=== PATIENT | male | born 1965 | race African-American/Black ===

== ENCOUNTER 2023-12-15 08:44 | Outpatient (REF) | payer MEDICAID, SELFPAY ==
[2023-12-15 14:21] LABS: MANUAL DIFF FLAG NO
[2023-12-15 14:25] LABS: Basophils Percent Auto 0.8 % (0-2); Eosinophils Absolute Auto 0.1 X10*3/uL (0.0-0.4); Eosinophils Percent Auto 1.8 % (0-4); Hematocrit 48.5 % (42.0-52.0); Hemoglobin 15.5 g/dl (14.0-18.0); Imm Gran Abs Auto 0.03 X10*3/uL (0.00-0.03); Imm Gran Pct Auto 0.6 % (0.0-0.4); Lymphocytes Percent Auto 39.7 % (20-40); Mean Corpuscular Hemoglobin 26.7 pg (27.0-33.0); Mean Corpuscular Volume 83.5 fL (80.0-98.0); Mean Platelet Volume 10.3 fL (9.4-12.4); Monocytes Absolute Auto 0.4 X10*3/uL (0.1-1.2); Monocytes Percent Auto 7.8 % (2-11); Neutrophils Absolute Auto 2.5 x10*3/uL (2.0-8.3); Neutrophils Percent Auto 49.3 % (45-73); Platelet Count 267 X10*3/uL (160-400); Red Blood Count 5.81 X10*6/uL (4.60-5.80); Red Cell Distribution Width 13.2 % (11.0-16.0)
[2023-12-15 15:02] LABS: Alanine Aminotransferase 12 U/L (0-40); Albumin Level 4.3 g/dL (3.5-5.0); Alkaline Phosphatase 60 U/L (39-117); Anion Gap 15 (12-20); Aspartate Amino Transferase 11 U/L (5-37); Bilirubin Total 0.5 mg/dL (0.0-1.0); Blood Urea Nitrogen 16 mg/dL (9-16); Calcium 9.2 mg/dL (8.4-10.2); Carbon Dioxide 20 mmol/L (22-29); Chloride 105 mmol/L (96-108); Cholesterol 148 mg/dL (<200); Estimated Glomerular Filt Rate > 60; Glucose Random 108 mg/dL (60-115); HDL Cholesterol 43 mg/dL (>40); LDL Cholesterol Calculated 83 mg/dL (<100); Potassium 3.9 mmol/L (3.3-5.1); Sodium 136 mmol/L (135-145); Total Protein 7.4 g/dL (6.5-8.0); Triglycerides 112 mg/dL (<150)
[2023-12-15 15:10] LABS: TSH reflex Free T4 0.62 uIU/mL (0.32-4.0)
[2023-12-15 15:11] LABS: Prostate Specific Antigen 0.97 ng/mL (<0.05-4.0)
[2023-12-15 15:52] LABS: Creatinine Urine 34.64 mg/dL; Microalbumin Urine < 5.0 mg/L
[2023-12-16 10:38] LABS: HBS Num1 9.51 mIU/mL (0-7.99); HBc Num1 0.39 S/CO (0.00-0.79); HBsAGNum1 0.34 S/CO (0.00-0.99); HIV AB/AG Nonreactive (Nonreactive); HIV Num 1 0.04 S/CO (0.00-0.99); Hepatitis B Core Antibody Nonreactive (Nonreactive); Hepatitis B Surface Antigen Negative (Negative)
[2023-12-16 12:34] LABS: HBS Num2 9.05 mIU/mL (0-7.99); HBS Num3 9.14 mIU/mL (0-7.99); ~Hepatitis B Surface Antibody GRAYZONE (Nonreactive)
[2023-12-17 14:44] LABS: RPR Rapid Plasma Reagin NON-REACTIVE (NON-REACTIVE)
[2023-12-18 14:58] LABS: HCV Log PCR <1.18 NOT DETECTED Log IU/mL (NOT DETECTED); HepC Viral Load <15 NOT DETECTED IU/mL (NOT DETECTED)
== END 2023-12-15 08:45 | disposition home or self-care (01) ==
LOC: HO.CHCLDS 08:44
PROVIDERS: PCP Registered Nurse; Visit Provider Registered Nurse
DX: E11.9 Type 2 diabetes mellitus without complications (principal); Z79.4 Long term (current) use of insulin
CPT/HCPCS: 36415; 80053; 80061; 82043; 82570; 84153; 84443; 85025; 86592; 86704; 86706; 87340; 87389; 87522

== ENCOUNTER 2024-05-03 09:36 | Day surgery (SDC) | payer OTHER, SELFPAY ==
--- NOTE | 2024-05-02 10:00 | HO.ANESPROP2 ---
Documented by User: Ladan Melgar NP 05/02/24 10:00 HPI - Anesthesia Eval Consult details Narrative: 58yo M for Colonoscopy Anesthesia Pre-Procedure Meds Is the patient on any of the following meds?: SGLT2 Inhib [facility] Past Medical History Medical History (Updated 05/02/24 @ 08:30 by Rosemary Bar, JAMIL) HTN (hypertension) Diabetes Surgical History Surgical History H/O colonoscopy Hx of appendectomy Social History Social History Patient Tobacco Use Status: Never used Tobacco Use of substances other than those prescribed or required for medical reasons: No Are you DNR?: No Advance Directives: No Advance Directives Information Provided: Yes Meds Allergies Allergy/AdvReac Type Severity Reaction Status Date / Time No Known Allergies Allergy Verified 05/03/24 09:48 Home Medications ?Medication ?Instructions ?Recorded ?Confirmed ?Last Taken ?Type empagliflozin 25 mg tablet 25 mg PO DAILY 05/02/24 05/03/24 04/29/24 History (Jardiance) insulin glargine 100 unit/mL (3 10 unit subcut BEDTIME 05/02/24 05/03/24 Unknown History mL) subcutaneous pen (Lantus Solostar U-100 Insulin) metformin 1,000 mg tablet 1,000 mg PO BID 05/02/24 05/03/24 Unknown History pravastatin 40 mg tablet 40 mg PO BEDTIME cholesterol 05/02/24 05/03/24 Unknown History valsartan 160 1 tab PO DAILY blood pressure 05/02/24 05/03/24 05/03/24 08:30 History mg-hydrochlorothiazide 12.5 mg tablet Assessment and Plan Assessment Anesthesia Assessment: Chart Reviewed Documented by User: Francisco Javier Alejandre MD 05/03/24 10:02 [facility] Past Medical History Medical History (Updated 05/02/24 @ 08:30 by Rosemary Bar RN) HTN (hypertension) Diabetes Family History Family history of problems with anesthesia: No Surgical History Surgical History H/O colonoscopy Hx of appendectomy History of Problems with Anesthesia: No Social History Social History Patient Tobacco Use Status: Never used Tobacco Use of substances other than those prescribed or required for medical reasons: No Are you DNR?: No Advance Directives: No Advance Directives Information Provided: Yes Meds Allergies Allergy/AdvReac Type Severity Reaction Status Date / Time No Known Allergies Allergy Verified 05/03/24 09:48 Home Medications ?Medication ?Instructions ?Recorded ?Confirmed ?Last Taken ?Type empagliflozin 25 mg tablet 25 mg PO DAILY 05/02/24 05/03/24 04/29/24 History (Jardiance) insulin glargine 100 unit/mL (3 10 unit subcut BEDTIME 05/02/24 05/03/24 Unknown History mL) subcutaneous pen (Lantus Solostar U-100 Insulin) metformin 1,000 mg tablet 1,000 mg PO BID 05/02/24 05/03/24 Unknown History pravastatin 40 mg tablet 40 mg PO BEDTIME cholesterol 05/02/24 05/03/24 Unknown History valsartan 160 1 tab PO DAILY blood pressure 05/02/24 05/03/24 05/03/24 08:30 History mg-hydrochlorothiazide 12.5 mg tablet Exam Airway Mallampati Class: II TM Dist: >3cm Neck ROM: Full Assessment and Plan Assessment Anesthesia Assessment: Anesthesia Plan Discussed Final Anesthetic Review Family History of Problems with Anesthesia: No History of Problems with Anesthesia: No NPO: Yes ASA Class: III Final Preanesthetic Review: No Changes in Pt Med Stat, Meds/Allgs Chart Reviewed, Consent Obtained/Reviewed and Anes Risks/Benef Reviewed Patient Risk: Intermediate Procedure Risk: Low Anesthetic Plan Anesthetic Plan: TIVA Disposition: Standard PACU
[2024-05-03 09:49] VITALS: BMI 27.8
[2024-05-03 10:00] VITALS: BP 148/80; PULSE 83; RESP 16; TEMP 36.2; O2SAT 99
--- NOTE | 2024-05-03 10:00 | MHC.SHP ---
Pre-Procedural Eval Section A - 24 Hr Update-Section A only Date of Service: 05/03/24 The patient is an INPATIENT: No The patient has been examined within 24 hours of the surgical procedure. The History & Physical has been completed within 30 days and I have reviewed it.: Yes Section B - Complete if H&P > 30 days Chief Complaint: screening Allergies: Allergies Allergy/AdvReac Type Severity Reaction Status Date / Time No Known Allergies Allergy Verified 05/03/24 09:48 Plan I have reviewed the history and physical and performed a pertinent physical examination on my patient. No changes have occurred unless specified. Time Spent With Patient Time: Total time managing care of this patient today ____ minutes.
[2024-05-03 10:01] LABS: Glucose, Whole Blood 143 mg/dL (60-115)
[2024-05-03] MEDS: Lactated Ringers 1,000 ML 100 ML IVCONT (10:08)
[2024-05-03 10:42] VITALS: BP 104/70; PULSE 66; RESP 16; TEMP 36.6; O2SAT 96
[2024-05-03 10:57] VITALS: BP 113/71; PULSE 69; RESP 16; TEMP 36.6; O2SAT 99
--- NOTE | 2024-05-03 11:38 | OP_ITS ---
DATE OF SERVICE: 05/03/2024 SURGEON: Jair Mcintyre MD INDICATIONS: Colon cancer screening. PREOPERATIVE DIAGNOSIS: POSTOPERATIVE DIAGNOSIS: PROCEDURE PERFORMED: Colonoscopy to the cecum. ESTIMATED BLOOD LOSS: COMPLICATIONS: ANESTHESIA: Monitored anesthesia care. ASSISTANTS: SPECIMENS: DESCRIPTION OF PROCEDURE: History and physical performed. The risks and benefits of the procedure were explained to the patient and informed consent was obtained. The patient was placed in the left lateral decubitus position. A digital rectal exam was performed and was found to be normal. The Olympus pediatric videocolonoscope was introduced into the rectum and advanced to the cecum. The cecum was identified by transillumination, palpation, and identification of ileocecal valve. Examination was performed. The scope was removed. He tolerated the procedure well and was returned to recovery area in stable condition. FINDINGS: The terminal ileum was not examined. The visualized colonic mucosa was normal. The quality of the prep was good. No polyps were identified. There was mild sigmoid diverticulosis. Retroflexed examination showed moderate-sized internal hemorrhoids. IMPRESSION: Normal colonoscopy. RECOMMENDATION: 1. Follow up as needed. 2. Repeat colonoscopy is recommended in 10 years for average-risk individuals. MD DIANE Ayoub/KIMO / [id number]
== END 2024-05-03 11:28 | disposition home or self-care (01) ==
PROVIDERS: PCP Registered Nurse; Visit Provider Internal Medicine Gastroenterology
PROC: 0DJD8ZZ Inspection of Lower Intestinal Tract, Via Natural or Artificial Opening Endoscopic (ICD-10-PCS; CPT 45378; principal; 2024-05-03 10:10)
DX: Z12.11 Encounter for screening for malignant neoplasm of colon (principal); K57.30 Diverticulosis of large intestine without perforation or abscess without bleeding; K64.8 Other hemorrhoids; E11.9 Type 2 diabetes mellitus without complications; I10 Essential (primary) hypertension; Z79.4 Long term (current) use of insulin; Z79.02 Long term (current) use of antithrombotics/antiplatelets; Z79.84 Long term (current) use of oral hypoglycemic drugs; Z79.899 Other long term (current) drug therapy
CPT/HCPCS: 45378; 82947; J2003; J2704

== ENCOUNTER 2025-03-10 08:22 | Outpatient (REF) | payer OTHER, SELFPAY ==
--- OUTSIDE RECORDS SUMMARY | 2024-05-03 07:10 | XMS_ITS ---
Author Organization [facility] Address [address] [place] [phone] Care Team Providers Care Mental Health Aide Name Role Phone HUMA FERNANDEZ MD Primary Care Provider Jair Page Jr Unavailable [phone] REASON FOR VISIT screening Encounters Encounter Location Date Provider Diagnosis [facility] [address] [place] [phone] 05/03/2024 Jair Mcintyre Jr Colon cancer screening Z12.11 Assessments Encounter Date Diagnosis (ICD Code) Assessment Notes Treatment Notes Treatment Clinical Notes Section Notes 05/03/2024 Colon cancer screening (ICD-10 - Z12.11) Plan Of Treatment No Information Progress Notes * LYN VALENTINELARSOB:1965 (59 yo M)Acc No.[id number]:05/03/2024 COLON WITH MAC Patient: GAB GARCIA Provider: Tanner Mcintyre MD :1965 A ge:58 Y S ex:Male Date:05/03/2024 Address:[address] [place], [place] [id number] Pcp:HUMA FERNANDEZ MD Subjective: * Chief Complaints: * 1 . Screening. * Medical History: Objective: * Vitals: Assessment: * Assessment: 1. C olon cancer screening - Z12.11 (Primary) Plan: * Treatment: * Procedure Codes: 4 5378 DIAGNOSTIC COLONOSCOPY * * The named appointment provid er may or may not be the originator of this progress note, and it is not deemed complete until electronically signed by the appointment provider. Sign off status: Pending * Provider: Tanner Mcintyre MD Date: 1 Generated for Angie byrne/Bailee/Blancaitting on: 0 03/10/2025 08:38 AM EDT
--- OUTSIDE RECORDS SUMMARY | 2025-03-10 08:39 | XMS_ITS | Encounter Summary ---
Author Organization [facility] Address [address] [place] [address] Care Team Providers Care Environmental Sampling Technician Name Role Phone Dot Cornejo Primary Care Provider [phone] Reason for Visit * Reason Comments Med Refill Encounter Details Date Type Department Care Team (Late st Contact Info) Description 01/19/2024 Refill [facility] [address] [place] [address] Dot Cornejo FNP [address] [place], [place] [phone] Primary hypertension Social History Tobacco Use Types Packs/Day Years Used Date Smoking Tobacco: Never Smokeless Tobacco: Never Depression Answer Date Recorded Patient Health Questionnaire-9 Score 3 12/09/2023 Patient Health Questionnaire-9 Score 3 12/09/2023 Last PHQ-9: Questionnaire Data Not on file 0 12/09/2023 Housing Stability Answer Date Recorded What is your housing situation today? I have jessa skaggs 12/08/[address] you li ve. Do you have problems with any of the following? None of the above 12/08/2023 Food Insecurity Answer Date Recorded Within the past 12 months, y ou worried that your food would run out before you got money to buy more: Never True 12/08/2023 Within the past 12 months,th e food you bought just didn't last and you didn't have enough money to get more: Never True 04/2024 Transportation Answer Date Recorded In the past 12 months, has l ack of transportation kept you from medical appts, meetings, work or from getting things needed for daily living? No 12/08/2023 Utilities Answer Date Recorded In the past 12 months, has t he electric, gas, oil or water company threatened to shut off services in your home? No 12/08/2023 Depression Answer Date Recorded Patient Health Questionnaire-2 Score 1 12/09/2023 Sex and Gender Information Value Date Recorded Sex Assigned at Male 05/30/2022 10:30 AM EDT Legal Sex Male 10:30 AM EDT Gender Identity Male 05/30/2022 10:30 AM EDT Sexual Orientation Straight 12/12/2023 11 :55 AM EDT documented as of this encounter Plan of Treatment Upcoming Encounters Date Type Department Care Team (Late st Contact Info) Description 04/04/2025 1:00 PM EDT Office Visit [facility] [address] [place] [address] Dot Cornejo FNP [address] [place] [address] documented as of this encounter Visit Diagnoses Diagnosis Primary hypertension Unspecified essential hypertension documented in this encounter Additional Health Concerns Assessment Noted Time PHQ-9 Depression Total Score: 3 12/09/19 24 8:08 AM EDT documented as of this encounter Care Teams Environmental Sampling Technician Relationship Specialty Start Date End Date Dot Cornejo FNP [address] [place] [address] PCP - General Family Medicine 01/26/22 documented as of this encounter
--- OUTSIDE RECORDS SUMMARY | 2025-03-10 08:39 | XMS_ITS | Clinical Summary ---
Author Organization [facility] [address] [facility] Address [address] [place] [address] Care Team Providers Care Engagement Specialist Name Role Phone Unavailable Primary Care Provider Unavailabl e Surgical History Surgery Date Site/Laterality Comments OTHER SURGICAL HISTORY PROCEDURE: DENIES PREVIOUS SURGERY COLONOSCOPY 06/14/13 PROCEDURE: HISTORICAL COLONOSCOPY; COMMENT: hemorrhoids; repeat in 10 yrs OTHER SURGICAL HISTORY 12/01/2021 PROCEDURE: ---- OTHER ----; COMMENT: laparoscopic I & D abdominal abscesses APPENDECTOMY PROCEDURE: NE APPENDECTOMY Medical History Medical History Date Comments Dyslipidemia DX:Dyslipidemia Family History Medical History Relation Name Comments Diabetes Father Hypertension Father Other: pulmonary embolism Mother x 2. Blindness Neg Hx Cataracts Neg Hx Glaucoma Neg Hx Macular degeneration Neg Hx Strabismus Neg Hx Relation Name Status Comments Brother Alive Father Alive Mother Sister Alive Social History Tobacco Use Types Packs/Day Years Used Date Smoking Tobacco: Never Smokeless Tobacco: Never Alcohol Use Standard Drinks/Week Comments Not Currently 0 (1 standard drink = 0.6 oz pur e alcohol) Sex and Gender Information Value Date Recorded Sex Assigned at Not on file Legal Sex Male 12:54 PM EST Gender Identity Not on file Sexual Orientation Not on file Obstetrics History Last Filed Vital Signs Vital Sign Reading Time Taken Comments Blood Pressure 155/95 03/01/2022 9:37 AM EDT Pulse 81 03/01/2022 9:37 AM EDT Temperature - - Respiratory Rate - - Oxygen Saturation - - Inhaled Oxygen Concentration - - Weight 90.8 kg (200 lb 3.2 oz) 03/01/2022 9:37 A M EDT Height 177.8 cm (5' 10 ) 03/01/2022 9:37 AM EDT Body Mass Index 28.73 03/01/2022 9:37 AM EDT Plan of Treatment Health Maintenance Due Date Last Done Comments Hepatitis B Vaccines (1 of 3 - 19+ 3-dose series) 1984 Pneumococcal Vaccine: 50+ Ye ars (1 of 1 - PCV) 12/14/2015 Zoster Vaccines (1 of 2) 12/14/2015 Cholesterol Screening (Lipid Panel) 07/10/2022 Colorectal Cancer Screening: Colonoscopy 07/10/2022 HIV Screening 07/10/2022 Hepatitis C Screening 07/10/2022 Social Influencers of Health Screening 07/10/2022 DTaP,Tdap,and Td Vaccines (2 - Td or Tdap) 04/10/2023 04/10/2013 COVID-19 Vaccine (1 - 2023-2 5 season) 2024 Depression Screening 07/31/2024 Influenza Vaccine (#1) 2025 04/10/2013 RSV Immunization Adult Patie nts (1 - 1-dose 75+ series) 2040 HIB Vaccines Aged Out No longer eligi ble based on patient's age to complete this topic HPV Vaccines Aged Out No longer eligi ble based on patient's age to complete this topic Hepatitis A Vaccines Aged Out No long er eligible based on patient's age to complete this topic IPV Vaccines Aged Out No longer eligi ble based on patient's age to complete this topic MMR Vaccines Aged Out No longer eligi ble based on patient's age to complete this topic Meningococcal ACWY Vaccine Aged Out N o longer eligible based on patient's age to complete this topic Meningococcal B Vaccine Aged Out No l onger eligible based on patient's age to complete this topic RSV Immunization Patients Un dima 20 months Aged Out No longer eligible b ased on patient's age to complete this topic Varicella Vaccines Aged Out No longer eligible based on patient's age to complete this topic
[2025-03-10 14:23] LABS: MANUAL DIFF FLAG NO
[2025-03-10 14:45] LABS: Hematocrit 45.5 % (42.0-52.0); Hemoglobin 14.7 g/dl (14.0-18.0); Imm Gran Abs Auto 0.04 X10*3/uL (0.00-0.03); Imm Gran Pct Auto 0.7 % (0.0-0.4); Lymphocytes Absolute Auto 1.8 X10*3/uL (1.2-4.9); Mean Corpuscular HGB Conc 32.3 g/dl (31.0-36.0); Mean Corpuscular Hemoglobin 26.5 pg (27.0-33.0); Mean Corpuscular Volume 82.0 fL (80.0-98.0); NRBC Abs Auto 0.000 X10*3/uL (0.0-0.012); NRBC Pct Auto 0.0 /100WBC (0.0-0.2); Platelet Count 261 X10*3/uL (160-400); Red Blood Count 5.55 X10*6/uL (4.60-5.80); White Blood Count 5.6 X10*3/uL (4.8-10.8)
[2025-03-10 15:27] LABS: Alanine Aminotransferase 19 U/L (0-40); Albumin Level 4.6 g/dL (3.5-5.0); Alkaline Phosphatase 60 U/L (39-117); Anion Gap 13 (12-20); Aspartate Amino Transferase 27 U/L (5-37); Blood Urea Nitrogen 15 mg/dL (9-16); Calcium 9.3 mg/dL (8.4-10.2); Carbon Dioxide 24 mmol/L (22-29); Chloride 105 mmol/L (96-108); Cholesterol 149 mg/dL (<200); Estimated Glomerular Filt Rate > 60; HDL Cholesterol 43 mg/dL (>40); Potassium 4.0 mmol/L (3.3-5.1); Sodium 138 mmol/L (135-145); Total Protein 7.7 g/dL (6.5-8.0); Triglycerides 121 mg/dL (<150)
[2025-03-10 15:42] LABS: Vitamin B12 187 pg/mL (200-900)
[2025-03-10 15:47] LABS: CT PCR Urine NOT DETECTED (Not Detect.); NG PCR Urine NOT DETECTED (Not Detect.)
[2025-03-11 08:39] LABS: HBS Num1 928.73 mIU/mL (0-7.99); HIV Num 1 0.06 S/CO (0.00-0.99); ~Hepatitis B Surface Antibody REACTIVE (Nonreactive)
[2025-03-11 16:18] LABS: HCV Log PCR <1.18 NOT DETECTED Log IU/mL (NOT DETECTED); HepC Viral Load <15 NOT DETECTED IU/mL (NOT DETECTED)
== END 2025-03-10 08:23 | disposition home or self-care (01) ==
LOC: HO.CHCLDS 08:22
PROVIDERS: Visit Provider Registered Nurse
DX: Z00.00 Encounter for general adult medical examination without abnormal findings (principal); E11.9 Type 2 diabetes mellitus without complications; Z79.4 Long term (current) use of insulin; Z11.3 Encounter for screening for infections with a predominantly sexual mode of transmission; Z11.4 Encounter for screening for human immunodeficiency virus [HIV]; Z11.8 Encounter for screening for other infectious and parasitic diseases; Z11.59 Encounter for screening for other viral diseases
CPT/HCPCS: 36415; 80053; 80061; 82043; 82570; 82607; 84443; 85025; 86592; 86706; 87389; 87491; 87522; 87591

== ENCOUNTER 2025-07-11 14:21 | Outpatient (REF) | payer OTHER, SELFPAY ==
--- OUTSIDE RECORDS SUMMARY | 2024-05-03 06:10 | XMS_ITS ---
Author Organization [facility] Address [address] [place] [phone] Care Team Providers Care Plumber Maintenance Name Role Phone HUMA FERNANDEZ MD Primary Care Provider Jair Page Jr Unavailable REASON FOR VISIT screening Encounters Encounter Location Date Provider Diagnosis [facility] [address] [place] [id number] 05/03/2024 Jair Mcintyre Jr Colon cancer screening Z12.11 Assessments Encounter Date Diagnosis (ICD Code) Assessment Notes Treatment Notes Treatment Clinical Notes Section Notes 05/03/2024 Colon cancer screening (ICD-10 - Z12.11) Plan Of Treatment No Information Progress Notes * LYN VALENTINELARSOB:1965 (59 yo M)Acc No.[id number]:05/03/2024 COLON WITH MAC Patient: GAB GARCIA Provider: Tanner Mcintyre MD :1965 A ge:58 Y S ex:Male Date:05/03/2024 Address:[address] [place], [place] [id number] Pcp:HUMA FERNANDEZ MD Subjective: * Chief Complaints: * S creening Assessment: * Assessment: 1. C olon cancer screening - Z12.11 (Primary) Plan: * Procedure Codes: 4 5378 DIAGNOSTIC COLONOSCOPY Billing Information: * Procedure Codes: 70844 DIAGNOSTIC COLONOSCOPY. * The named appointment provid er may or may not be the originator of this progress note, and it is not deemed complete until electronically signed by the appointment provider. Sign off status: Pending * Provider: Tanner Mcintyre MD Date: 1 Generated for Angie byrne/Bailee/Moisés on: 1 09/11/2024 01:52 PM EST
--- OUTSIDE RECORDS SUMMARY | 2025-07-11 13:45 | XMS_ITS | Encounter Summary ---
Author Organization [employer] Address [address] [facility] [address] [place] [address] Care Team Providers Care Electrical And Electronic Assembler Name Role Phone Dot Cornejo Primary Care Provider [phone] Reason for Referral * Consultation (Routine) - Pending Review Specialty Diagnoses / Procedures Referred By Jose cohen Referred To Contact Podiatry Diagnoses Plantar fasciitis of left foot Dot Cornejo FNP [address] [place] [address] Phone: tel: fax: Referral ID Status Reason Start Date Expiration Date Visits Requested Visits Authorized [id number] Pending Review Specialty Services Required 5 07/11/2026 1 1 Encounter Details Date Type Department Care Team (Late st Contact Info) Description 07/11/2025 1:45 PM EST Office Visit [facility] CH[facility] MED & PEDS [address] [place] [address] Dot Cornejo FNP [address] [place] [address] Plantar fasciitis of left foot (Primary Dx); Type 2 diabetes mellitus without complication, with long-term current use of insulin (HCC); Dietary counseling; Exercise counseling; Vitamin B12 deficiency Social History Tobacco Use Types Packs/Day Years Used Date Smoking Tobacco: Never Smokeless Tobacco: Never Depression Answer Date Recorded Patient Health Questionnaire-9 Score 1 03/07/2025 Patient Health Questionnaire-9 Score 1 03/07/2025 Last PHQ-9: Questionnaire Data Not on file 0 03/07/2025 Housing Stability Answer Date Recorded What is your housing situation today? I am not s ure 03/07/[address] you li ve. Do you have problems with any of the following? None of the above 03/07/2025 Food Insecurity Answer Date Recorded Within the past 12 months, y ou worried that your food would run out before you got money to buy more: Never True 03/07/2025 Within the past 12 months,th e food you bought just didn't last and you didn't have enough money to get more: Never True 02/2025 Transportation Answer Date Recorded In the past 12 months, has l ack of transportation kept you from medical appts, meetings, work or from getting things needed for daily living? No 03/07/2025 Utilities Answer Date Recorded In the past 12 months, has t he electric, gas, oil or water company threatened to shut off services in your home? No 03/07/2025 Depression Answer Date Recorded Patient Health Questionnaire-2 Score 0 03/07/2025 Internet Access Answer Date Recorded Internet Access Q1 Yes 03/07/2025 Internet Access Q2 Not on file 03/07/2025 Sex and Gender Information Value Date Recorded Sex Assigned at Male 05/30/2022 10:30 AM EDT Legal Sex Male 10:30 AM EDT Gender Identity Male 05/30/2022 10:30 AM EDT Sexual Orientation Straight 12/12/2023 11 :55 AM EDT documented as of this encounter Last Filed Vital Signs Vital Sign Reading Time Taken Comments Blood Pressure 130/88 07/11/2025 1:48 PM EST Pulse 68 07/11/2025 1:48 PM EST Temperature 36.3 C (97.4 F) 07/11/2025 1:48 PM EST Respiratory Rate 16 07/11/2025 1:48 PM EST Oxygen Saturation - - Inhaled Oxygen Concentration - - Weight 88.5 kg (195 lb) 07/11/2025 1:48 PM EST Height - - Body Mass Index 27.92 04/04/2025 12:55 PM EDT documented in this encounter Progress Notes * Dot Cornejo, CLOTHING [employer]ER - 07/11/2025 1:45 PM EST Subjective Landen Castellanos is a 59 y.o. male w/ PMH hypertension, T2DM, migraines, and hx of appendectomy who presents to the office for follow up visit. HPI: Last PCP visit: 04/04/25. Tinea versicolor improved with PO fluconazole and topical selsum blue. T2DM: reports home readings well controlled. Excellent med adherence. Slight A1c increase today to 7.2%. Will work on low-carb diet. Heel pain: describes pain in left heel that was previously treated with steroid injection with goodresponse. Reports pain was well controlled for years, but recently started to re-flare. Describes as sharp pain in bottom of left heel, worse with the first few steps in the morning. Aggravated by standing on feet or extended periods of walking. Uses supportive footwear at work. Review of Systems Constitutional: Negative for chills and fever. Respiratory: Negative for cough and wheezing. Cardiovascular: Negative for chest pain and palpitations. Gastrointestinal: Negative for diarrhea, nausea and vomiting. Endocrine: Negative for polydipsia, polyphagia and polyuria. Musculoskeletal: Positive for arthralgias. Neurological: Negative for dizziness. Objective Visit Vitals BP 130/88 (BP Location: Left arm, Patient Position: Sitting, BP Cuff Size: Adult) Pulse 68 Temp 97.4 ??F (36.3 ??C) (Oral) Resp 16 Wt 195 lb (88.5 kg) BMI 27.92 kg/m?? Smoking Status Never BSA 2.09 m?? Physical Exam Vitals reviewed. Constitutional: General: He is not in acute distress. Appearance: Normal appearance. He is normal weight. HENT: Head: Normocephalic and atraumatic. Right Ear: External ear normal. Left Ear: External ear normal. Nose: Nose normal. Mouth/Throat: Mouth: Mucous membranes are moist. Eyes: Extraocular Movements: Extraocular movements intact. Pupils: Pupils are equal, round, and reactive to light. Cardiovascular: Rate and Rhythm: Normal rate and regular rhythm. Pulses: Dorsalis pedis pulses are 2+ on the right side and 2+ on the left side. Posterior tibial pulses are 2+ on the right side and 2+ on the left side. Heart sounds: Normal heart sounds. No murmur heard. Pulmonary: Effort: Pulmonary effort is normal. Breath sounds: Normal breath sounds. Abdominal: General: Bowel sounds are normal. There is no distension. Palpations: Abdomen is soft. There is no mass. Tenderness: There is no abdominal tenderness. There is no guarding. Musculoskeletal: General: Normal range of motion. Right lower leg: No edema. Left lower leg: No edema. Right foot: Normal range of motion. No deformity or bunion. Left foot: Normal range of motion. No deformity or bunion. Feet: Right foot: Protective Sensation: 7 sites tested. 7 sites sensed. Skin integrity: Skin integrity normal. No ulcer or blister. Toenail Condition: Right toenails are normal. Left foot: Protective Sensation: 7 sites tested. 7 sites sensed. Skin integrity: Skin integrity normal. No ulcer or blister. Toenail Condition: Left toenails are normal. Skin: Capillary Refill: Capillary refill takes less than 2 seconds. Findings: No rash. Neurological: Mental Status: He is alert and oriented to person, place, and time. Psychiatric: Mood and Affect: Mood normal. Behavior: Behavior normal. Assessment/Plan Problem List Items Addressed This Visit Endocrine and Metabolic Type 2 diabetes mellitus (HCC) Current Assessment & Plan Lab Results Component Value Date HGBA1C 7.2 (A) 07/11/2025 HGBA1C 6.9 (A) 03/07/2025 HGBA1C 6.9 (A) 07/19/2024 HGBA1C 7.9 (H) 01/28/2022 -A1c slightly above goal -Microalbumin/Cr:Alb: WNL Feb 2025 -Eye exam: [facility] Eye Care (IVELISSE 09/23/22), due -CORINNE/ARB: yes -Statin: yes Med regimen: -Jardiance 25mg daily -Metformin 1000mg BID -Lantus 10 units subcutaneous at bedtime Lab Results Component Value Date CHOL 149 03/10/2025 CHOL 148 12/15/2023 TRIG 121 03/10/2025 TRIG 112 12/15/2023 HDL 43 03/10/2025 HDL 43 12/15/2023 LDLCHOLCAL 82 03/10/2025 LDLCHOLCAL 83 12/15/2023 Plan: cont current med regimen, work on nutrition at this time. Relevant Orders POCT Glucose (Completed) POCT Hgb A1c (Completed) Vitamin B12 Vitamin B12 deficiency Overview Lab Results Component Value Date VITB12 187 (L) 03/10/2025 Current Assessment & Plan Completed Vit B12 1000mcg daily x 3 months, has been off for a few weeks and would like to re-checkvalue to determine if needs to restart. Discussed may be 2/2 metformin use. Musculoskeletal and Injuries Plantar fasciitis of left foot - Primary Current Assessment & Plan - Home exercises and treatment options discussed - Referral to podiatry as pt reports receiving steroid injection in past with good response Relevant Orders Referral to Podiatry Other Visit Diagnoses Dietary counseling Exercise counseling Follow up: 3 months per recall, sooner as needed documented in this encounter Miscellaneous Notes * Patient Education Note - PETE Aguilar - 07/11/2025 7:10 PM EST Images from the original note were not included. Patient Education Table of Contents Ejercicios para la fascitis plantar (Exercises for Plantar Fasciitis) To view videos and all your education online visit, [email or web address] or scan this QR code with your smartphone. Access to this content will in one year. Ejercicios para la fascitis plantar Exercises for Plantar Fasciitis Los ejercicios para el pie y la pierna pueden ayudar si tiene fascitis plantar. Soco solo los ejercicios que le hayan indicado. Aseg?rese de comprender c?mo hacer los ejercicios de manera nieto. Siga los pasos que se describena continuaci?n. Es normal sentir molestias leves. Det?ngase si siente dolor o el dolor empeora. No comience estos ejercicios hasta que el m?dico se lo indique. Ejercicios de elongaci?n y amplitud de movimiento Estos ejercicios precalientan los m?sculos y las articulaciones. Tambi?n ayudan con el movimiento yla flexibilidad del pie. Pueden ayudar a aliviar el dolor. Estiramiento de la fascia plantar Jennifer ejercicio estirar?? la fascia plantar, que es jose hernandez de tejido grueso que se encuentra en la parte inferior del pie. 1. Si?ntese con la pierna izquierda/derecha cruzada sobre la otra rodilla. Sostenga el pat?n con jose mano, con el pulgar cerca del arco. Con la otra mano, ag?rrese los dedos del pie. Empuje suavemente los dedos de los pies hacia la parte superior del pie. Debe sentir un estiramiento en la parte inferior de los dedos del pie, en la parte inferior del pie, o en ambos lugares. Mantenga jennifer estiramiento lita segundos. Suelte lentamente los dedos. Vuelva a la posici?n inicial. Repita veces. Soco jennifer ejercicio ?veces por d?a. Estiramiento de los m?sculos gemelos, de pie Jennifer ejercicio tambi?n se denomina estiramiento de la parte superior de la pantorrilla, o de los m?sculos gemelos. Estira los m?sculos de la parte posterior de la parte superior de la pantorrilla. 1. P?rese con las yolanda apoyadas sobre la pared. Extienda la pierna derecha/izquierda por detr?s suyo. Flexione levemente la rodilla delantera. Mantenga los talones apoyados en el suelo, los dedos del pie apuntando hacia tesha y la rodilla de atr?s extendida. Lleve el peso hacia la pared. No arquee la espalda. Debe sentir un ligero estiramiento en la parte superior de la pantorrilla. Mantenga esta posici?n lita segundos. Repita veces. Soco jennifer ejercicio ?veces por d?a. Estiramiento del m?sculo s?amandeep, de pie Jennifer ejercicio se denomina estiramiento de la parte inferior de la pantorrilla, o s?amandeep. Estira losm?sculos de la parte posterior de la parte inferior de la pantorrilla. 1. P?rese con las yolanda apoyadas sobre la pared. Extienda la pierna izquierda/derecha hacia atr?s y flexione ligeramente la rodilla de la pierna de adelante. Mantenga los talones apoyados en el suelo y los dedos del pie apuntando hacia tesha. Flexione la rodilla de atr?s y lleve el peso ligeramente a la pierna de atr?s. Debe sentir un estiramiento suaveen la parte profunda de la parte inferior de la pantorrilla. Mantenga esta posici?n lita segundos. Repita veces. Soco jennifer ejercicio ?veces por d?a. Estiramiento de los m?sculos gemelos y s?amandeep, de pie con un escal?n Jennifer ejercicio estira los m?sculos de la parte posterior de la parte inferior de la pierna. [place] incluye los m?sculos gemelos y s?amnadeep. 1. P?rese tesha de un escal?n apoyando solo la ayaz?n metatarsiana de villeda pie derecho/marika. La ayaz?n metatarsiana del pie es la superficie sobre la que caminamos, xavier debajo de los dedos. Mantenga el otro pie apoyado con firmeza en el mismo escal?n. Sost?ngase de la pared o de jose baranda para mantener el equilibrio. [place] lentamente el otro pie y permita que el peso del cuerpo presione el pat?n sobre el borde del frente del escal?n. Mantenga la rodilla recta y sin doblar. Debe sentir un estiramiento en la pantorrilla. Mantenga esta posici?n lita segundos. Vuelva a poner ambos pies sobre el escal?n. Repita jennifer ejercicio con jose leve flexi?n en la rodilla izquierda/derecha. Rep?talo veces con la rodilla izquierda/derecha extendida y veces con la rodilla izquierda/derecha flexionada. Soco jennifer ejercicio ?veces por d?a. Ejercicio de equilibrio Jennifer ejercicio aumenta el equilibrio y el control de la fuerza del arco. Ayuda a eliminar la presi?n de la fascia plantar. Pararse sobre jose pierna Si jennifer ejercicio es muy f?cil, puede intentar hacerlo con los ojos cerrados o parado sobre jose almohada. 1. Sin calzado, p?rese cerca de jose baranda o jose ramona. Puede sostenerse de la baranda o del shanda de la ramona, seg?n lo necesite. P?rese sobre el pie marika/derecho. Mantenga el dedo danny del pie en el suelo. [place] el arco del pie. Debe sentir un estiramiento en la parte de abajo del pie y el arco. No deje que el pie se vaya hacia adentro. Mantenga esta posici?n lita segundos. Repita veces. Soco jennifer ejercicio ?veces por d?a. Esta informaci?n no tiene jefferson fin reemplazar el consejo del m?dico. Aseg?rese de hacerle al m?dicocualquier pregunta que tenga. Document Released: 2007-05-03 Document Updated: 2024-01-29 Document Reviewed: 2024-01-29 [email or web address] Patient Education ? 2024 [employer]. * Patient Education Note - PETE Aguilar - 07/11/2025 7:10 PM EST Images from the original note were not included. Patient Education Table of Contents Fascitis plantar: qu?? debe isabel (Plantar Fasciitis: What to Know) To view videos and all your education online visit, [email or web address] or scan this QR code with your smartphone. Access to this content will in one year. Fascitis plantar: qu?? debe saber Plantar Fasciitis: What to Know La fascia plantar es jose hernandez de tejido grueso que se encuentra en la parte inferior del pie. Conecta el hueso del pat?n con la base de los dedos del pie. Si la fascia se irrita, puede causar dolor en el pat?n o en el pie. [place] se denomina fascitis plantar. En algunos casos, la fascitis plantar puede hacer que le resulte dif?cil caminar o moverse. El dolor suele ser peor a la ma?kev despu?s de dormir, o despu?s de permanecer sentado o acostado lita un per?odo de tiempo. El dolor tambi?n puede ser peor despu?s de caminar o estar de pie por mucho tiempo. ?Cu?les son las causas? Las causas de la fascitis plantar pueden ser las siguientes: Estar de pie lita mucho tiempo. Usar zapatos que no tengan un buen soporte para el arco. Realizar actividades de alto impacto. Estas son cosas que sobrecargan las articulaciones. Incluyen lo siguiente: ? Ballet. ? Ejercicios aer?bicos. Estos son ejercicios que hacen que el coraz?n anita m?s r?pido. Tener sobrepeso. Tener jose forma de caminar, o marcha, que no es normal. Tener rigidez muscular en la pantorrilla, que es la parte posterior de la parte inferior de la pierna. Phil altos en los pies, o pies planos. Comenzar un nuevo deporte o actividad. ?Cu?les son los signos o s?ntomas? El s?ntoma principal de la fascitis plantar es dolor en el pat?n. El dolor puede empeorar despu?s de lo siguiente: Al hallie per primeros pasos despu?s de un tiempo de reposo. [place] incluye por la ma?kev despu?s de despertarse, o despu?s de walker estado sentado o acostado lita un tiempo. Estar de pie quieto lita mucho tiempo. El dolor puede disminuir despu?s de 30 a 45 minutos de actividad, jefferson caminar apaciblemente. ?C?mo se diagnostica? La fascitis plantar se puede diagnosticar en funci?n de per antecedentes m?dicos, per s?ntomas y unexamen. El m?dico controlar?? lo siguiente: Jose echo dolorida en la parte inferior del pie. [place] alto en el pie o pies planos. Dolor al planting material remover el pie. Dificultad para planting material remover el pie. Tambi?n pueden hacerle pruebas. Pueden incluir: Radiograf?as. Ecograf?a. Resonancia magn?khloe (RM). ?C?mo se trata? El tratamiento depende de la gravedad de villeda fascitis plantar. Puede incluir lo siguiente: Terapia de RHCE. [place] significa reposo, hielo, presi?n (compresi?n) y levantar (elevar) el pie afectado. Ejercicios para estirar las pantorrillas y la fascia plantar. Jose f?catherine nocturna. Esta mantiene el pie estirado y hacia arriba mientras usted duerme. Fisioterapia. Esta puede ayudar con los s?ntomas. Tambi?n puede prevenir problemas en el futuro. Inyecciones de un medicamento con corticoesteroides llamado cortisona. [place] puede ayudar a aliviar el dolor y la irritaci?n. Terapia extracorp?nicolette con ondas de choque. Jennifer tratamiento utiliza choques el?ctricos para estimular la fascia plantar. Si otros tratamientos no ayudan, pat vez deba someterse a jose cirug?a. Siga estas instrucciones en villeda casa: Control del dolor, la rigidez y la hinchaz?n Use hielo, jose bolsa de hielo o jose botella de agua congelada jefferson se lo hayan indicado. ? Coloque jose toalla entre la piel y el hielo. ? Frote la parte inferior del pie sobre el hielo o la botella congelada. ? Soco esto lita 20?minutos, de 2?a 3?veces al d?a. Si la piel se le pone de color garcia, quite el hielo de inmediato para evitar da?os en la piel. El riesgo de da?o es mayor si no puede sentir dolor, calor o fr?o. Use calzado que tenga suela con amortiguaci?n de aire o almohadillas de gel. Tambi?n podr?a probar plantillas blandas hechas para la fascitis plantar. Actividad Trate de no hacer cosas que le causen dolor. Pregunte qu?? cosas son seguras para que soco. Soco ejercicio seg?n las indicaciones. Pruebe actividades de bajo impacto. [place] significa que son m?s suaves para las articulaciones. Incluyen lo siguiente: ? Nadar. ? Gimnasia acu?khloe. ? Andar en bicicleta. Instrucciones generales Olla per medicamentos ?nicamente seg?n las indicaciones. Use jose f?catherine nocturna jefferson le hayan indicado. Afloje la f?catherine si siente hormigueo en los dedos de los pies, si est?n entumecidos, o si se le enfr?an y se tornan de color ricky. Mantenga un peso saludable. De ser necesario, trabaje con villeda m?dico para perder peso. Comun?quese con un m?dico si: Los s?ntomas no desaparecen con el tratamiento. Villeda dolor empeora. El dolor hace que le sea dif?cil moverse o hacer las cosas cotidianas. Esta informaci?n no tiene jefferson fin reemplazar el consejo del m?dico. Aseg?rese de hacerle al m?dicocualquier pregunta que tenga. Document Released: 2006-04-26 Document Updated: 2024-01-29 Document Reviewed: 2024-01-29 [employer] Patient Education ? 2024 [employer] * Assessment & Plan Note - PETE Aguilar - 07/11/2025 2:20 PM ESTAssociated Problem(s): Plantar fasciitis of left foot - Home exercises and treatment options discussed - Referral to podiatry as pt reports receiving steroid injection in past with good response * Assessment & Plan Note - PETE Aguilar - 07/11/2025 2:19 PM ESTAssociated Problem(s): Vitamin B12 deficiency Completed Vit B12 1000mcg daily x 3 months, has been off for a few weeks and would like to re-checkvalue to determine if needs to restart. Discussed may be 2/2 metformin use. * Assessment & Plan Note - PETE Aguilar - 07/11/2025 2:18 PM ESTAssociated Problem(s): Type 2 diabetes mellitus (HCC) Lab Results Component Value Date HGBA1C 7.2 (A) 07/11/2025 HGBA1C 6.9 (A) 03/07/2025 HGBA1C 6.9 (A) 07/19/2024 HGBA1C 7.9 (H) 01/28/2022 -A1c slightly above goal -Microalbumin/Cr:Alb: WNL Feb 2025 -Eye exam: [facility] (IVELISSE 09/23/22), due -CORINNE/ARB: yes -Statin: yes Med regimen: -Jardiance 25mg daily -Metformin 1000mg BID -Lantus 10 units subcutaneous at bedtime Lab Results Component Value Date CHOL 149 03/10/2025 CHOL 148 12/15/2023 TRIG 121 03/10/2025 TRIG 112 12/15/2023 HDL 43 03/10/2025 HDL 43 12/15/2023 LDLCHOLCAL 82 03/10/2025 LDLCHOLCAL 83 12/15/2023 Plan: cont current med regimen, work on nutrition at this time. * Assessment & Plan Note - PETE Aguilar - 07/11/2025 1:48 PM ESTAssociated Problem(s): Primary hypertension -Goal BP <130/80 mmHg, elevated in office, but well controlled per home readings -Cont valsartan 160mg-HCTZ 12.5mg daily -Low salt diet encouraged -30-60 mins of daily exercise encouraged documented in this encounter Plan of Treatment Upcoming Encounters Date Type Department Care Team (Late st Contact Info) Description 08/29/2025 1:00 PM EST Office Visit [facility] OPTOMETRY [address] [place] [address] Loretta Lim, OD [address] [place] [address] 10/17/2025 1:45 PM EDT Office Visit [facility] MED & PEDS [address] [place] [address] Dot Cornejo FNP [address] [place] [address] Scheduled Referrals Name Type Priority Associated Diagnoses Orde r Schedule Referral to Podiatry Outpatient Referral Routine Plantar fasciitis of left foot Expected: 07/11/2025 (Approximate), Expires: 07/11/2026 documented as of this encounter Goals Goal Patient Goal Type Associated Problems Recent Progress Patient-Stated? Author Help patients manage their type 2 diabetes Care Plan Help patients manage their type 2 diabetes Corin Odom Weekly blood pressure task Care Plan Weekly blood pressure task No Corin Ramos Help patients manage their type 2 diabetes Care Plan Help patients manage their type 2 diabetes Corin Odom Patient has chronic kidney disease Care Plan Patient has chronic kidney disease Corin Odom Weekly blood pressure task Care Plan Weekly blood pressure task No Corin Ramos Patient has chronic kidney disease Care Plan Patient has chronic kidney disease Corin Odom Weekly blood pressure task Care Plan Weekly blood pressure task No Gaviota Junior [place] Weekly blood pressure task Care Plan Weekly blood pressure task No Gav[place] Junior [place] Patient has chronic kidney disease Care Plan Patient has chronic kidney disease No Gav[place] Junior [place] Patient has chronic kidney disease Care Plan Patient has chronic kidney disease No [place]av[place] Junior [place] Weekly blood pressure task Care Plan Weekly blood pressure task No Dot Cornejo FNP Weekly blood pressure task Care Plan Weekly blood pressure task No Dot Cornejo FNP Patient has chronic kidney disease Care Plan Patient has chronic kidney disease No Dot Cornejo FNP Patient has chronic kidney disease Care Plan Patient has chronic kidney disease No Dot Cornejo FNP documented as of this encounter Procedures Procedure Name Priority Date/Time Associated Diagnosis Comments VITAMIN B12 Routine 07/11/2025 2:02 PM EST Type 2 diabetes mellitus without complication, with long-term current use of insulin (HCC) POCT GLYCATED HEMOGLOBIN, TOTAL Routine 07/11/2025 1:50 PM EST Type 2 diabetes mellitus without complication, with long-term current use of insulin (HCC) POCT GLUCOSE Routine 07/11/2025 1:49 PM EST Type 2 diabetes mellitus without complication, with long-term current use of insulin (HCC) documented in this encounter Results * Vitamin B12 (07/11/2025 2:02 PM EST) Vitamin B12 317 200 - 900 pg/mL [facility] Comment:NORMAL 200-900 PG/ML INDETERMINATE 160-199 PG/ML DEFICIENT < 160 PG/ML Blood Venous blood specimen / Unknown 07/11/2025 2:02 PM EST 07/11/2025 3:11 PM EST Dot Cornejo [employer] LAB BLOOD ORDERABLES Final Res ult [facility] [address] [place] [phone] * (ABNORMAL) POCT Hgb A1c (07/11/2025 1:50 PM EST) Hemoglobin A1C 7.2(A) 4.0 - 5.7 % QC Media Lot # [id number] Lot# Expiration Date Blood 07/11/2025 1:50 PM EST us Dot Cornejo [facility] POINT OF CARE TEST ENTER/EDIT ORDERABLES Final Result * POCT Glucose (07/11/2025 1:49 PM EST) Glucose Blood, POC 89 60 - 200 mg/dL QC Media Lot # [id number] Lot# Expiration Date 472 Blood Capillary blood specimen / Unknown 07/11/2025 1:49 PM EST Result [facility] Dot FREEMAN POINT OF CARE TEST ENTER/EDIT ORDERABLES Final Result documented in this encounter Visit Diagnoses Diagnosis Plantar fasciitis of left foot- Primary Type 2 diabetes mellitus without complication, with long-term current use of insulin ([facility]) Dietary counseling Dietary surveillance and counseling Exercise counseling Vitamin B12 deficiency Other B-complex deficiencies documented in this encounter Additional Health Concerns Active Problems Noted Date Diagnosed Date Help patients manage their type 2 diabetes 07/04 Weekly blood pressure task 07/04/2025 Help patients manage their type 2 diabetes 07/04 Patient has chronic kidney disease 07/04/2025 Weekly blood pressure task 07/04/2025 Patient has chronic kidney disease 07/04/2025 Weekly blood pressure task 07/09/2025 Weekly blood pressure task 07/09/2025 Patient has chronic kidney disease 07/09/2025 Patient has chronic kidney disease 07/09/2025 Weekly blood pressure task 07/11/2025 Weekly blood pressure task 07/11/2025 Patient has chronic kidney disease 07/11/2025 Patient has chronic kidney disease 07/11/2025 Assessment Noted Time PHQ-9 Depression Total Score: 1 03/07/20 25 1:04 PM EDT documented as of this encounter Care Teams Electrical And Electronic Assembler Relationship Specialty Start Date End Date Dot Cornejo FNP [address] [place] [id number] PCP - General Family Medicine 01/26/22 documented as of this encounter
[2025-07-11 16:21] LABS: Vitamin B12 317 pg/mL (200-900)
--- OUTSIDE RECORDS SUMMARY | 2025-07-11 19:35 | XMS_ITS | Encounter Summary ---
Author Organization [employer] Address [address] [place] [address] [address] [place] [address] Care Team Providers Care Kiln Setter Name Role Phone Dot Cornejo Primary Care Provider [phone] Reason for Visit * Reason Comments Med Refill Encounter Details Date Type Department Care Team (Late Contact Info) Description 12/17/2022 Refill [facility] [address] [place] [address] Dot Cornejo FNP [address] [place] [address] Social History Tobacco Use Types Packs/Day Years Used Date Smoking Tobacco: Never Sex and Gender Information Value Date Recorded Sex Assigned at Male 05/30/2022 10:30 AM EDT Legal Sex Male 10:30 AM EDT Gender Identity Male 05/30/2022 10:30 AM EDT Sexual Orientation Straight 12/12/2023 11 :55 AM EDT documented as of this encounter Plan of Treatment Upcoming Encounters Date Type Department Care Team (Late Contact Info) Description 08/29/2025 1:00 PM EST Office Visit [facility] [address] [place] [address] Raphael, Loretta, OD [address] [place] [address] 10/17/2025 1:45 PM EDT Office Visit [facility] [address] [place] [address] Dot Cornejo FNP [address] [place] [address] documented as of this encounter Visit Diagnoses Not on filedocumented in this encounter Care Teams Kiln Setter Relationship Specialty Start Date End Date Dot Cornejo FNP [address] [place] [address] PCP - General Family Medicine 01/26/22 documented as of this encounter
--- OUTSIDE RECORDS SUMMARY | 2025-07-11 19:35 | XMS_ITS | Encounter Summary ---
Author Organization [email or web address] Address [address] [facility] [address] [place] [address] Care Team Providers Care Extruder Tender Name Role Phone Dot Cornejo Primary Care Provider [phone] Encounter Details Date Type Department Care Team (Late st Contact Info) Description 12/19/2022 Orders Only [facility] [address] [place] [address] Samira Rebollar LPN Social History Tobacco Use Types Packs/Day Years [...] Description 08/29/2025 1:00 PM EST Office Visit [facility] OPT[facility] [address] [place] [address] RaphaelLoretta ji, OD [address] [place] [address] 10/17/2025 1:45 PM EDT Office Visit [facility] PEDS [address] [place] [address] Dot Cornejo FNP [address] [place] [address] documented as of this encounter Visit Diagnoses Not on filedocumented in this encounter Care Teams Extruder Tender Relationship Specialty Start Date End Date Dot Cornejo FNP [address] [place] [address] PCP - General Family Medicine 01/26/22 documented as of this encounter
--- OUTSIDE RECORDS SUMMARY | 2025-07-11 19:35 | XMS_ITS | Encounter Summary ---
Author Organization [employer] Address [address] [place] [address] [address] [place] [address] Care Team Providers Care Ct Tech Name Role Phone Dot Cornejo Primary Care Provider [phone] Reason for Visit * Reason Comments Med Refill Encounter Details Date Type Department Care Team (Late Contact Info) Description 07/30/2023 Refill [facility] [address] [place] [address] Dot Cornejo FNP [address] [place] [address] Social History Tobacco Use Types Packs/Day Years [...] Description 08/29/2025 1:00 PM EST Office Visit [facility] [address] [place] [address] Arphael, Loretta, OD [address] [place] [address] 10/17/2025 1:45 PM EDT Office Visit [facility] [address] [place] [address] Dot Cornejo FNP [address] [place] [address] documented as of this encounter Visit Diagnoses Not on filedocumented in this encounter Care Teams Ct Tech Relationship Specialty Start Date End Date Dot Cornejo FNP [address] [place] [address] PCP - General Family Medicine 01/26/22 documented as of this encounter
--- OUTSIDE RECORDS SUMMARY | 2025-07-11 19:35 | XMS_ITS | Encounter Summary ---
Author Organization [employer] Address [address] [facility] [address] [place] [address] Care Team Providers Care Feeder/Folder Name Role Phone Dot Cornejo WAREHOUSE PACKAGING SUPERVISOR Primary Care Provider [phone] Encounter Details Date Type Department Care Team ([facility] st Contact Info) Description 07/09/2025 Telephone [facility] MED [facility] PEDS [address] [place], [place] [id number] Dot Cornejo FNP [address] [place] [address] Social History Tobacco Use Types Packs/Day Years [...] AM EDT documented as of this encounter Miscellaneous Notes * Telephone Encounter - Gaviota Junior [place] - 07/09/2025 3:47 PM EST Chart Prep Labs: not applicable Images: not applicable Referrals: not applicable Vaccines due: Covid and Zoster Screenings: foot exam Overdue care gaps: A1c, Glucose, SBIRT, Oral health screening, and Tobacco documented in this encounter Plan of Treatment Upcoming Encounters Date Type Department Care Team (Late st Contact Info) Description 08/29/2025 1:00 PM EST Office Visit [facility] OPT[facility] [address] [place] [address] Raphael, Loretta, OD [address] [place] [address] 10/17/2025 1:45 PM EDT Office Visit [facility] PEDS [address] [place] [address] Dot Cornejo, WAREHOUSE PACKAGING SUPERVISOR [address] [place] [address] documented as of this encounter Goals Goal [...] Plan Patient has chronic kidney disease No Corin Ramos Weekly blood pressure task Care Plan Weekly blood pressure task No Gaviota Junior [place] Weekly blood pressure task Care Plan Weekly blood pressure task No Gaviota Junior [place] Patient has chronic kidney disease Care Plan Patient has chronic kidney disease No Gaviota Junior [place] Patient has chronic kidney disease Care Plan Patient has chronic kidney disease No Gaviota Junior [place] documented as of this encounter Visit Diagnoses Not on filedocumented in this encounter Additional Health Concerns Active [...] 07/09/2025 Patient has chronic kidney disease 07/09/2025 Assessment Noted Time PHQ-9 Depression Total Score: 1 03/07/20 25 1:04 PM EDT documented as of this encounter Care Teams Feeder/Folder Relationship Specialty Start Date End Date Dot Cornejo FNP [address] [place] [id number] PCP - General Family Medicine 01/26/22 documented as of this encounter
--- OUTSIDE RECORDS SUMMARY | 2025-07-11 19:35 | XMS_ITS | Clinical Summary ---
Author Organization [employer] Address [address] [facility] [address] [place] [address] Care Team Providers Care Bingo Worker Name Role Phone Dot Cornejo [employer]BER Primary Care Provider [phone] Allergies No known active allergies Medications FreeStyle lancets 1 each by Other route 2 times daily. Test blood sugar twice a day 100 each 11 12/20/19 23 Active FreeStyle lancets USE TWICE A DAY 0 23 Active BD Pen Needle Steffanie 2nd Gen 32G X 4 MM misc USE DAILY WITH INSULIN PEN 01/02/20 23 Active clotrimazole (Lotrimin) 1 % creamIndications:T inea APLICAR TOPICAMENTE 2 VECES AL RIZWANA AL AREA AFECTADA EN LA MANANA Y NOCHE POR 1-6 SEMANAS. 30 g 1 03/22/20 23 Active UltiCare Alcohol Swabs 70 % padsIndications:Ty pe 2 diabetes mellitus with other specified complication, without long-term current use of insulin (HCC) USE WITH GLUCOMETER TWICE A DAY. 100 each 3 06/05/20 23 Active Jardiance 25 MG TAKE 1 TABLET BY MOUTH EVERY DAY IN THE MORNING 90 tablet 3 08/02/19 25 Active valsartan-hydroCHL OROthiazide (Diovan HCT) 160-12.5 MG tabletIndications: Primary hypertension Take 1 tablet by mouth Once per day. (Hypertension) 90 tablet 3 08/30/19 25 026 Active metFORMIN (Glucophage) 1000 MG tabletIndications: Type 2 diabetes mellitus without complication, unspecified whether technician terminal and repeater insulin use TAKE 1 TABLET BY MOUTH TWICE A DAY WITH BREAKFAST AND DINNER 180 tablet 3 10/04/19 25 Active insulin pen needle (BD Pen Needle Steffanie 2nd Gen) 32G x 4 mm miscIndications:Ty pe 2 diabetes mellitus without complication, with long-term current use of insulin (HCC) USE DAILY WITH INSULIN PEN 100 each 11 12/25/19 25 Active pravastatin (Pravachol) 40 MG tabletIndications: Type 2 diabetes mellitus without complication, with long-term current use of insulin (HCC) TAKE 1 TABLET BY MOUTH EVERY DAY AT BEDTIME FOR CHOLESTEROL 90 tablet 3 01/28/20 25 Active Lantus SoloStar 100 UNIT/ML penIndications:Typ e 2 diabetes mellitus with hyperlipidemia (HCC) INJECT 10 UNITS SUBCUTANEOUSLY DAILY BEFORE BED 15 mL 3 02/13/20 25 Active glucose blood (FREESTYLE LITE) test stripIndications:T ype 2 diabetes mellitus without complication, unspecified whether fpc insulin use USE TO TEST BLOOD SUGAR TWICE DAILY 100 strip 11 5 2:40 PM EST 03/10/20 25 Active cyanocobalamin (Vitamin B-12) 1000 MCG tablet Take 1 tablet (1,000 mcg) by mouth Once per day. 90 tablet 1 03/17/20 25 026 Active selenium sulfide (Selsun) 2.5 % shampoo Apply topically to affected area(s) and lather with small amounts of water; leave on skin for 10 minutes, then rinse thoroughly. Repeat once daily for 7 days 118 mL 04/06/20 25 Active Active Problems Problem Noted Date Diagnosed Date Plantar fasciitis of left foot 07/11/2025 Assessment & Plan (07/11/2025 2:20 PM EST): - Home exercises and treatment options discussed - Referral to podiatry as pt reports receiving steroid injection in past with good response Vitamin B12 deficiency 04/06/2025 Overview (04/06/2025): Lab Results Component Value Date VITB12 187 (L) 03/10/2025 Assessment & Plan (07/11/2025 2:19 PM EST): Completed Vit B12 1000mcg daily x 3 months, has been off for a few weeks and would like to re-check value to determine if needs to restart. Discussed may be 2/2 metformin use. Assessment & Plan (04/06/2025 2:47 PM EDT): Initiated on Vit B12 1000mcg daily History of appendectomy 10/26/2023 Migraine 10/26/2023 Rectal bleeding 10/26/2023 Assessment & Plan (07/21/2024 7:30 PM EST): Colonoscopy Apr 2024 that demonstrated moderate-sized internal hemorrhoids and diverticulosis, but otherwise unremarkable. No further concerns at this time. Follow up PRN Healthcare maintenance 10/26/2023 Overview (07/21/2024): Smoking status: never smoker Colonoscopy: 05/03/24 at [facility] - normal. Repeat 10 years. OPH: IVELISSE 09/23/22 at [facility] PSA: WNL November 2023 Primary hypertension 01/26/2022 Assessment & Plan (07/11/2025 1:48 PM EST): -Goal BP <130/80 mmHg, elevated in office, but well controlled per home readings -Cont valsartan 160mg-HCTZ 12.5mg daily -Low salt diet encouraged -30-60 mins of daily exercise encouraged Assessment & Plan (04/06/2025 2:44 PM EDT): -Goal BP <130/80 mmHg, elevated in office, but well controlled per home readings -Cont valsartan 160mg-HCTZ 12.5mg daily -Low salt diet encouraged -30-60 mins of daily exercise encouraged Assessment & Plan (03/09/2025 3:45 PM EDT): -Goal BP <130/80 mmHg, home readings average in target -Cont valsartan 160mg-HCTZ 12.5mg daily -Low salt diet encouraged -30-60 mins of daily exercise encouraged Assessment & Plan (07/21/2024 7:29 PM EST): -Goal BP <130/80 mmHg, home readings average in target -Cont valsartan 160mg-HCTZ 12.5mg daily -Low salt diet encouraged -30-60 mins of daily exercise encouraged Assessment & Plan (03/03/2024 8:59 AM EDT): -Goal BP < 130/80mmHg -Office and home readings above goal -Increase to valsartan 160mg-HCTZ 12.5mg daily (If readings continue to be elevated in 2 weeks at home, consider increase to valsartan 160mg-hydrochlorothiazide 25mg daily) -Low salt diet encouraged -30-60 mins of daily exercise encouraged Assessment & Plan (12/09/2023 8:01 AM EDT): -Goal BP < 130/80mmHg -Initial and repeat BP elevated in office, although well controlled per home readings -Continue valsartan 80mg-HCTZ 12.5mg daily -Low salt diet encouraged -30-60 mins of daily exercise encouraged -Follow up if readings elevated at home for consideration of med adjustment Assessment & Plan (10/26/2023 11:51 AM EDT): -Goal BP < 130/80mmHg -Pt denies QUINTEROS, blurry vision, chest pain, palpitations, N/V/D -Continue valsartan 80mg-HCTZ 12.5mg daily. Reviewed med safety and SE -Low salt diet encouraged -30-60 mins of daily exercise encouraged Type 2 diabetes mellitus 01/26/2022 Assessment & Plan (07/11/2025 2:18 PM EST): Lab Results Component Value Date HGBA1C 7.2 (A) 07/11/2025 HGBA1C 6.9 (A) 03/07/2025 HGBA1C 6.9 (A) 07/19/2024 HGBA1C 7.9 (H) 01/28/2022 -A1c slightly above goal -Microalbumin/Cr:Alb: WNL Feb 2025 -Eye exam: [facility] (IVELISSE 09/23/22), due -CORINNE/ARB: yes -Statin: yes Med regimen: -Jardiance 25mg daily -Metformin 1000mg BID -Lantus 10 units subcutaneous at bedtime Lab Results Component Value Date CHOL 149 03/10/2025 CHOL 148 12/15/2023 TRIG 121 03/10/2025 TRIG 112 12/15/2023 HDL 43 03/10/2025 HDL 43 12/15/2023 LDLCHOLCAL 82 03/10/2025 LDLCHOLCAL 83 12/15/2023 Plan: cont current med regimen, work on nutrition at this time. Assessment & Plan (03/09/2025 3:41 PM EDT): Lab Results Component Value Date HGBA1C 6.9 (A) 03/07/2025 HGBA1C 6.9 (A) 07/19/2024 HGBA1C 6.8 (A) 03/01/2024 HGBA1C 7.9 (H) 01/28/2022 -A1c well controlled, cont current regimen -Microalbumin/Cr:Alb: WNL November 2023, due -Eye exam: [facility] (IVELISSE 09/23/22), due -CORINNE/ARB: yes -Statin: yes Med regimen: -Jardiance 25mg daily -Metformin 1000mg BID -Lantus 10 units subcutaneous at bedtime Lab Results Component Value Date CHOL 148 12/15/2023 TRIG 112 12/15/2023 HDL 43 12/15/2023 LDLCHOLCAL 83 12/15/2023 Assessment & Plan (07/21/2024 7:26 PM EST): Lab Results Component Value Date HGBA1C 6.9 (A) 07/19/2024 HGBA1C 6.8 (A) 03/01/2024 HGBA1C 6.8 (A) 12/08/2023 HGBA1C 7.9 (H) 01/28/2022 -A1c well controlled -Microalbumin/Cr:Alb: WNL November 2023 -Eye exam: [facility] (IVELISSE 09/23/22) -CORINNE/ARB: yes -Statin: yes Med regimen: -Jardiance 25mg daily -Metformin 1000mg BID -Lantus 10 units subcutaneous at bedtime (only using 2-3 times per week PRN, goal to taper off fully in the future) Lab Results Component Value Date CHOL 148 12/15/2023 TRIG 112 12/15/2023 HDL 43 12/15/2023 LDLCHOLCAL 83 12/15/2023 Assessment & Plan (03/03/2024 9:02 AM EDT): Lab Results Component Value Date HGBA1C 6.8 (A) 03/01/2024 HGBA1C 6.8 (A) 12/08/2023 HGBA1C 7.1 (A) 09/01/2023 HGBA1C 7.9 (H) 01/28/2022 -Congratulated on A1c, well controlled -Microalbumin/Cr:Alb: WNL November 2023 -Eye exam: [facility] (IVELISSE 09/23/22) -Dental: Encouraged to establish with dental home -CORINNE/ARB: yes -Statin: pravastatin 40mg nightly Med regimen: -Jardiance 25mg daily -Metformin 1000mg BID -Lantus 10 units subcutaneous at bedtime (only using 2-3 times per week PRN, goal to taper off fully in the future) Lab Results Component Value Date CHOL 148 12/15/2023 TRIG 112 12/15/2023 HDL 43 12/15/2023 LDLCHOLCAL 83 12/15/2023 Assessment & Plan (12/09/2023 8:04 AM EDT): Lab Results Component Value Date HGBA1C 6.8 (A) 12/08/2023 HGBA1C 7.1 (A) 09/01/2023 HGBA1C 7.9 (H) 01/28/2022 -Congratulated on improvement in A1c, currently at goal -Microalbumin/Cr:Alb: WNL January 2022 -Lipids: TC 169, LDL 109, HDL 41, TG 101 January 2022 -Eye exam: [facility] (IVELISSE 09/23/22) -Dental: Encouraged to establish with dental home -Foot exam/peripheral pulses: WNL January 2022 -CORINNE/ARB: yes -Statin: pravastatin 40mg nightly Med regimen: -Jardiance 25mg daily -Metformin 1000mg BID -Lantus 10 units subcutaneous at bedtime (only using 2-3 times per week PRN, goal to taper off fully in the future) Assessment & Plan (10/26/2023 11:52 AM EDT): A1c: POC A1c 6.5 on 06/03/22 (Target </= 7.0) Microalbumin/Cr:Alb: WNL January 2022 Lipids: TC 169, LDL 109, HDL 41, TG 101 January 2022 Eye exam: [facility] Dental: Encouraged to establish with dental home Foot exam/peripheral pulses: WNL January 2022 CORINNE/ARB: yes Statin: pravastatin 40mg nightly Decrease Lantus to 10 units QHS (Goal to taper off lantus in the future) Continue metformin 1000mg BID Continue Jardiance 25mg daily Encouraged to continue checking BG values 1-2x/day. Can adjust lantus dose based off fasting values if necessary. Encounters Date Type Department Care Team Description 07/11/2025 1:45 PM EST Office Visit [facility] [address] [place] [address] Dot Cornejo FNP Plantar fasciitis of left foot (Primary Dx); Type 2 diabetes mellitus without complication, with long-term current use of insulin ([facility]); Dietary counseling; Exercise counseling; Vitamin B12 deficiency 07/11/2025 Travel 07/09/2025 Telephone [facility] [address] [place] [address] Dot Cornejo FNP 07/04/2025 Patient Outreach [facility] [address] [place], [place] [phone] Dot Cornejo FNP Pre-visit Planning ([facility] screening completed on 03/07/2025) from Last 3 Months Immunizations Immunization Administration Dates Next Due Hep B, adult 04/12/2024,01/19/2024,12/22/2023 INFLUENZA INJECTABLE QUADRIV ALANT CCIIV4 MDCK Multi-dose vial 05/18/2022 Influenza injectable quadriv alent IIV4 with preservative 05/10/2023,07/05/2016 Influenza, IIV3, injectable 05/14/2025,1 ,04/10/2013,08/07 Pneumococcal Conjugate PCV 20 07/19/2024 Pneumococcal Polysaccharide PPSV23 10/31/2016 Tdap 07/05/2016,04/10/2013 Zoster, Recombinant 02/23/2024 Family History Medical History Relation Name Comments Diabetes Father Diabetes Mother Relation Name Status Comments Father Mother Social History Tobacco Use Types Packs/Day Years Used Date Smoking Tobacco: Never Smokeless Tobacco: Never Tobacco Cessation:Counseling Given: Not Answered Depression Answer Date Recorded Patient Health Questionnaire-9 [...] Orientation Straight 12/12/2023 11 :55 AM EDT Last Filed Vital Signs Vital Sign Reading Time Taken Comments Blood Pressure 130/88 07/11/2025 1:48 PM EST Pulse 68 07/11/2025 1:48 PM EST Temperature 36.3 C (97.4 F) 07/11/2025 1:48 PM EST Respiratory Rate 16 07/11/2025 1:48 PM EST Oxygen Saturation 98% 04/04/2025 12:55 PM EDT Inhaled Oxygen Concentration - - Weight 88.5 kg (195 lb) 07/11/2025 1:48 PM EST Height 178 cm (5' 10.08 ) 04/04/2025 12:55 PM ED T Body Mass Index 27.92 04/04/2025 12:55 PM EDT Plan of Treatment Upcoming Encounters Date Type Department Care Team (Late st Contact Info) Description 08/29/2025 1:00 PM EST Office Visit [facility] [address] [place] [address] RaphaelLioneln, OD [address] [place] [address] 10/17/2025 1:45 PM EDT Office Visit [facility] [address] [place], [place] [phone] Dot Cornejo, [employer] MEMBER [address] [place], [place] [phone] Health Maintenance Due Date Last Done Comments CT Colonography 1965 FIT DNA/Cologuard 1965 FIT 1965 FOBT 1965 Sigmoidoscopy 1965 RSV Patients and Patients Aged 60 years or older (1 - Risk 50-74 years 1-dose series) 12/14/2015 Zoster Vaccines (2 of 2) 04/19/2024 02/23/2024 COVID-19 Vaccine ( season) 2025 05/18/2022, 07/01/2021, 11/06/2020 Diabetes: Hemoglobin A1C 10/09/2025 025, 03/07/2025, 07/19/2024, Additional history exists Depression Screening 03/07/2026 03/07/2025, 03/07/20 25 Disability Screening 03/07/2026 03/07/2025 SDOH Screening 03/07/2026 03/07/2025 Tobacco Screening 03/09/2026 03/09/2025 Diabetes: Urine Protein Screening 03/10/2026 03/10/2025, 12/15/2023, 01/28/2022 Lipid Panel 03/10/2026 03/10/2025, 11/28, 01/28/2022 DTaP/Tdap/Td Vaccines (3 - Td or Tdap) 07/05/2026 07/05/2016, 04/10/2013 Alcohol/Substance Use Screening 07/11/2026 07/11/2025 Diabetes: Foot Exam 07/11/2026 07/11/2025, 07/11/2025, 07/11/2025, Additional history exists Eye Exam 07/19/2026 07/19/2024, 07/01, 07/19/2024, Additional history exists Colonoscopy 05/03/2034 05/03/2024, 10/2023, 06/14/2013 Colorectal Cancer Screening 05/03/2034 Hepatitis B Vaccines Completed 04/12/2024, 01/19/2024, 12/22/2023 Pneumococcal Vaccine: 50+ Years Completed 07/19/2024, 10/31/2016 HIV Screening Completed 03/10/2025, 11/28, 01/28/2022 Hepatitis C Screening Completed 03/10/2025 , 12/15/2023, 01/28/2022 Influenza Vaccine Completed 05/14/2025, , 05/10/2023, Additional history exists HIB Vaccines Aged Out No longer eligi [...] patient's age to complete this topic Meningococcal Vaccine Aged Out No john osmar eligible based on patient's age to complete this topic RSV under 20 months Aged Out No longe r eligible based on patient's age to complete this topic Rotavirus Vaccines Aged Out No longer eligible based on patient's age to complete this topic Goals Goal Patient Goal Type Associated Problems Recent Progress Patient-Stated? Author Help patients manage their type 2 diabetes Care Plan Help patients manage their type 2 diabetes Corin Odom Weekly blood pressure task Care Plan Weekly blood pressure task Corin Odom Help patients manage their type 2 diabetes Care Plan Help patients manage their type 2 diabetes Corin Odom Patient has chronic kidney disease Care Plan Patient has chronic kidney disease No Corin Ramos Weekly blood pressure task Care Plan Weekly blood pressure task No Rachel Corin Patient has chronic kidney disease Care Plan [...] Care Plan Weekly blood pressure task No Phalen Dot, [employer]BER Weekly blood pressure task Care Plan Weekly blood pressure task No Phalen, Dot, [employer]BER Patient has chronic kidney disease Care Plan Patient has chronic kidney disease No Phalen Dot, [employer]BER Patient has chronic kidney disease Care Plan Patient has chronic kidney disease No Phalviktor Dot, [employer]ILY MEMBER Procedures Procedure Name Priority Date/Time Associated Diagnosis Comments VITAMIN B12 Routine 07/11/2025 2:02 PM EST Type 2 diabetes mellitus without complication, with long-term current use of insulin ([facility]) POCT GLYCATED HEMOGLOBIN, TOTAL Routine 07/11/2025 1:50 PM EST Type 2 diabetes mellitus without complication, with long-term current use of insulin ([facility]) POCT GLUCOSE Routine 07/11/2025 1:49 PM EST Type 2 diabetes mellitus without complication, with long-term current use of insulin ([facility]) ALBUMIN, RANDOM URINE W/CREATININE Routine 03/10/2025 8:30 AM EDT Type 2 diabetes mellitus without complication, with long-term current use of insulin ([facility]) Healthcare maintenance HEPATITIS C VIRAL RNA, QUANTITATIVE, REAL-TIME PCR Routine 03/10/2025 8:25 AM EDT Healthcare maintenance HIV 1/2 ANTIGEN/ANTIBODY, FOURTH GENERATION W/RFL Routine 03/10/2025 8:25 AM EDT Healthcare maintenance LIPID PANEL, STANDARD Routine 03/10/2025 8:25 AM EDT Type 2 diabetes mellitus without complication, with long-term current use of insulin ([facility]) Healthcare maintenance HM COLONOSCOPY Routine 05/03/2024 5:25 PM EDT from Last 3 Months or Most Recently Relevant to Health Maintenance Results * Vitamin B12 (07/11/2025 2:02 PM EST) Vitamin B12 317 200 - 900 pg/mL [facility] Comment:NORMAL 200-900 PG/ML INDETERMINATE 160-199 PG/ML DEFICIENT < 160 PG/ML Blood Venous blood specimen / Unknown 07/11/2025 2:02 PM EST 07/11/2025 3:11 PM EST us Dot Cornejo [facility] BLOOD ORDERABLES Final Res ult [facility] [address] [place] [phone] * (ABNORMAL) POCT Hgb A1c (07/11/2025 1:50 PM EST) Hemoglobin A1C 7.2(A) 4.0 - 5.7 % QC Media Lot # [id number] Lot# Expiration Date 5 Blood 07/11/2025 1:50 PM EST us Chris TourPalviktor [employer] POINT OF CARE TEST ENTER/EDIT ORDERABLES Final Result * POCT Glucose (07/11/2025 1:49 PM EST) Glucose Blood, POC 89 60 - 200 mg/dL QC Media Lot # [id number] Lot# Expiration Date 4,726 Blood Capillary blood specimen / Unknown 07/11/2025 1:49 PM EST Dot TourPalviktor [facility] POINT OF CARE TEST ENTER/EDIT ORDERABLES Final Result * Albumin, Random Urine W/Creatinine (03/10/2025 8:30 AM EDT) Pathologist [facility] Creatinine, Urine 37.69 mg/dL [facility] Microalbumin Urine <5.0 mg/L [facility] Microalbum Creatinine Ratio Ur TNP <30 ug/mg cr [facility] Comment:Unable to calculate albumin/creatinine ratio due to lowmicroalbumin or creatinine result. Urine 03/10/2025 8:30 AM EDT 03/10/2025 2:11 PM EDT Dot Cornejo [facility] URINE ORDERABLES Final Res ult Performing Organization Address [facility] Co de Phone Number [facility] [address] [place] [phone] * Hepatitis C Viral RNA, Quantitative, Real-Time PCR (03/10/2025 8:25 AM EDT) Pathologist [facility] Hepatitis C Viral Load <15 NOT DETECTED NOT DETECTED IU/mL [facility] HCV Log PCR <1.18 NOT DETECTED NOT DETECTED Log IU/mL [facility] Comment:For additional infor mataurora, please refer [email or web address] [employer]AGS/faq/[email or web address](This link is being provided for informational/educational purposes only.)THIS TEST WAS PERFORMED AT:[facility] [place] [id number] MARSHALL MD Blood 03/10/2025 8:25 AM EDT 03/10/2025 2:17 PM EDT Dot Cornejo [facility] BLOOD ORDERABLES Final Res ult Performing Organization Address [facility] Co de Phone Number [facility] [address] [place] [phone] * HIV-1/2 Antigen and Antibodies, Fourth Generation, with Reflexes (03/10/2025 8:25 AM EDT) Pathologist [facility] HIV AB/AG Nonreactive Nonreactive [facility] Comment:HIV-1 p24 Ag and/or HIV-1/HIV-2 Ab not detected.A test result that is nonreactive does not exclude thepossibility of exposure to or infection with HIV-1 and/orHIV-2. Nonreactive results in this assay for individualswith prior exposure to HIV-1 and/or HIV-2 may be due toantigen and antibody levels that are below the limit ofdetection of this assay.The [employer] HIV Ag/Ab Combo assay result andsupplemental assay results should be interpreted inconjunction with the patient's clinical presentation,history and other laboratory results. If the results areinconsistent with clinical evidence, additional testing issuggested to confirm the result. Blood Venous blood specimen / Unknown 03/10/2025 8:25 AM EDT 03/10/2025 2:17 PM EDT us Dot Cornejo [facility] [employer] [facility] BLOOD ORDERABLES Final Res ult [facility] [address] [place] [phone] * Lipid Panel, Standard (03/10/2025 8:25 AM EDT) Triglycerides 121 <150 mg/dL [facility] Comment:Desirable Triglyceri de: less than 150 mg/dLBorderline High Triglyceride 150-199 mg/dLHigh Triglyceride: 200-499 mg/dLVery High Triglyceride: greater than or equal to 5OO mg/dL Cholesterol 149 <200 mg/dL [facility] Comment:Desirable Cholestero l: less than 200 mg/dLBorderline High Cholesterol: 200-239 mg/dLHigh Cholesterol: greater than 239 mg/dL LDL Cholesterol Calculated 82 <100 mg/dL [facility] Comment:Desirable LDL: less than 100 mg/dLNear Optimal/Above Optimal LDL: 110- 129 mg/dLBorderline High LDL: 130-159 mg/dLHigh LDL: 160-189 mg/dLVery High LDL: greater than or equal to 190 mg/dL HDL Cholesterol 43 >40 mg/dL [facility] Comment:Desirable HDL: great er than 40 mg/dL Note: This HDL assay may give artificially low results in patients with liver disease. Blood Venous blood specimen / Unknown 03/10/2025 8:25 AM EDT 03/10/2025 2:17 PM EDT us Dot Cornejo [facility] [employer] [facility] BLOOD ORDERABLES Final Res ult [facility] [address] [place] [phone] * Hm Colonoscopy (05/03/2024 5:25 PM EDT) Historical Provider MD HEALTH MAINTENANCE Final Result from Last 3 Months or Most Recently Relevant to Health Maintenance Additional Health Concerns Active Problems Noted Date [...] 07/11/2025 Patient has chronic kidney disease 07/11/2025 Insurance [facility] Care Teams Bingo Worker Relationship Specialty Start Date End Date Dot Cornejo FNP [address] [place] [phone] PCP - General Family Medicine 01/26/22
--- OUTSIDE RECORDS SUMMARY | 2025-07-11 19:35 | XMS_ITS | Encounter Summary ---
Author Organization [employer] Address [address] [facility] [address] [place] [address] Care Team Providers Care Adult School Teacher Name Role Phone Dot Cornejo BARTACKER Primary Care Provider [phone] Encounter Details Date Type Department Care Team (Latest Contact Info) Description 07/11/2025 Travel Social History Tobacco Use Types Packs/Day Years [...] Description 08/29/2025 1:00 PM EST Office Visit [facility] [address] [place] [address] Raphael, Loretta, OD [address] [place] [address] 10/17/2025 1:45 PM EDT Office Visit [facility] [address] [place] [address] Dot Cornejo BARTACKER [address] [place] [address] documented as of this encounter Goals Goal Patient Goal Type Associated Problems Recent Progress Patient-Stated? Author Help patients manage their type 2 diabetes Care Plan Help patients manage their type 2 diabetes Corin Odom Weekly blood pressure task Care Plan Weekly blood pressure task No Corin Ramos Help patients manage their type 2 diabetes Care Plan Help patients manage their type 2 diabetes No Corin Ramos Patient has chronic kidney [...] Weekly blood pressure task No Dot Cornejo BARTACKER Patient has chronic kidney disease Care Plan Patient has chronic kidney disease No Dot Cornejo BARTACKER Patient has chronic kidney disease Care Plan Patient has chronic kidney disease No Dot Cornejo FNP documented as of this encounter Visit Diagnoses [...] documented as of this encounter Care Teams Adult School Teacher Relationship Specialty Start Date End Date Dot Cornejo FNP [address] [place] [phone] PCP - General Family Medicine 01/26/22 documented as of this encounter
--- OUTSIDE RECORDS SUMMARY | 2025-07-11 19:35 | XMS_ITS | Encounter Summary ---
Author Organization [facility] Address [address] [facility] 7t [place] [address] Care Team Providers Care Director Chemistry Name Role Phone Dot Cornejo Primary Care Provider [phone] Encounter Details Date Type Department Care Team (Late st Contact Info) Description 02/07/2023 Orders Only [facility] MEDICINE [address] [place] [address] Samira Rebollar LPN Social History Tobacco Use [...] Description 08/29/2025 1:00 PM EST Office Visit [facility] OPTOMETRY [address] [place] [address] RaphaelLoretta ji, OD [address] [place] [address] 10/17/2025 1:45 PM EDT Office Visit [facility] CHC MED & PEDS [address] [place] [address] Dot Cornejo FNP [address] [place] [address] documented as of this encounter Visit Diagnoses Not on filedocumented in this encounter Care Teams Director Chemistry Relationship Specialty Start Date End Date Dot Cornejo FNP [address] [place] [address] PCP - General Family Medicine 01/26/22 documented as of this encounter
--- OUTSIDE RECORDS SUMMARY | 2025-07-11 19:35 | XMS_ITS | Encounter Summary ---
Author Organization [employer] Address [address] [facility] 7t [place] [address] Care Team Providers Care Systems Planner Name Role Phone Dot Cornejo Primary Care Provider [phone] Reason for Visit * Reason Comments Med Refill Encounter Details Date Type Department Care Team (Late st Contact Info) Description 01/19/2024 Refill [facility] MEDICINE [address] [place] [address] Dot Cornejo FNP [address] [place], [place] [phone] Primary hypertension Social History Tobacco Use Types [...] Description 08/29/2025 1:00 PM EST Office Visit [facility] OPTOMETRY [address] [place] [address] RaphaelLoretta ji, OD [address] [place] [address] 10/17/2025 1:45 PM EDT Office Visit [facility] CHC MED & PEDS [address] [place] [address] Dot Cornejo FNP [address] [place] [address] documented as of this encounter Visit Diagnoses Diagnosis Primary hypertension Unspecified essential hypertension documented in this encounter Additional Health Concerns Assessment Noted Time PHQ-9 Depression Total Score: 3 12/09/19 24 8:08 AM EDT documented as of this encounter Care Teams Systems Planner Relationship Specialty Start Date End Date Dot Cornejo FNP [address] [place] [address] PCP - General Family Medicine 01/26/22 documented as of this encounter
--- OUTSIDE RECORDS SUMMARY | 2025-07-11 19:36 | XMS_ITS | Clinical Summary ---
Author Organization [facility] Address [address] [place] [address] Care Team Providers Care Market Development Specialist Name Role Phone Unavailable Primary Care Provider Unavailabl e Surgical History Surgery Date Site/Laterality Comments OTHER SURGICAL HISTORY PROCEDURE: DENIES PREVIOUS SURGERY COLONOSCOPY 06/14/13 PROCEDURE: HISTORICAL COLONOSCOPY; COMMENT: hemorrhoids; repeat in 10 yrs OTHER SURGICAL HISTORY 12/01/2021 PROCEDURE: ---- OTHER ----; COMMENT: laparoscopic I & D abdominal abscesses APPENDECTOMY PROCEDURE: IA APPENDECTOMY Medical History Medical History Date Comments [...] on file Sexual Orientation Not on file Last Filed Vital Signs Vital Sign Reading [...] Health Maintenance Due Date Last Done Comments Colorectal Cancer Screening: Colonoscopy 1965 Hepatitis B Vaccines (1 of 3 - 19+ 3-dose series) 1984 Pneumococcal Vaccine: 50+ Ye ars (1 of 1 - PCV) 12/14/2015 Zoster Vaccines (1 of 2) 12/14/2015 Cholesterol Screening (Lipid Panel) 07/10/2022 HIV Screening 07/10/2022 Hepatitis C Screening 07/10/2022 Social Influencers of Health Screening 07/10/2022 DTaP,Tdap,and Td Vaccines (2 - Td or Tdap) 04/10/2023 04/10/2013 Depression Screening 07/31/2024 COVID-19 Vaccine (1 - 2024-2 6 season) 2025 Influenza Vaccine (#1) 2025 04/10/2013 RSV Immunization [...]
--- OUTSIDE RECORDS SUMMARY | 2025-07-11 19:36 | XMS_ITS | Encounter Summary ---
Author Organization [employer] Address [address] [facility] [address] 7[address] [place] [address] Care Team Providers Care Custodian Blood Bank Name Role Phone Dot Cornejo Primary Care Provider [phone] Encounter Details Date Type Department Care Team (Late st Contact Info) Description 08/22/2022 Orders Only [facility] MEDICINE [address] [place] [address] Samira Rebollar LPN Social History Tobacco Use Types Packs/Day Years Used Date Smoking Tobacco: Never Assessed Sex and Gender Information Value Date Recorded Sex Assigned at Male 05/30/2022 10:30 AM EDT Legal Sex Male 10:30 AM EDT Gender Identity Male 05/30/2022 10:30 AM EDT Sexual Orientation Straight 12/12/2023 11 :55 AM EDT documented as of this encounter Plan of Treatment Upcoming Encounters Date Type Department Care Team (Late st Contact Info) Description 08/29/2025 1:00 PM EST Office Visit [facility] OPTOMETRY [address] [place] [address] RaphaelLoretta ji, OD [address] [place] [address] 10/17/2025 1:45 PM EDT Office Visit [facility] CHC MED & PEDS [address] [place] [address] Dot Cornejo FNP [address] [place] [address] documented as of this encounter Visit Diagnoses Not on filedocumented in this encounter Care Teams Custodian Blood Bank Relationship Specialty Start Date End Date Dot Cornejo FNP [address] [place] [address] PCP - General Family Medicine 01/26/22 documented as of this encounter
--- OUTSIDE RECORDS SUMMARY | 2025-07-11 19:36 | XMS_ITS | Encounter Summary ---
Author Organization [employer] [facility] Address [address] [facility] 7t [place] [address] Care Team Providers Care Senior Gl Accountant Name Role Phone Dot Cornejo Primary Care Provider Encounter Details Date Type Department Care Team (Late Contact Info) Description 07/26/2022 Orders Only [facility] MED & PEDS [address] [place] [address] Priya Salomon LPN Social History Tobacco Use Types Packs/Day [...] Description 08/29/2025 1:00 PM EST Office Visit [facility] OPTOMETRY [address] [place] [address] Raphael, Loretta, OD [address] [place] [address] 10/17/2025 1:45 PM EDT Office Visit [facility] CHC MED & PEDS [address] [place] [address] Dot Cornejo FNP [address] [place] [address] documented as of this encounter Visit Diagnoses Not on filedocumented in this encounter Care Teams Senior Gl Accountant Relationship Specialty Start Date End Date Dot Cornejo FNP [address] [place] [address] PCP - General Family Medicine 01/26/22 documented as of this encounter
--- OUTSIDE RECORDS SUMMARY | 2025-07-11 19:36 | XMS_ITS | Patient Health Record ---
Author Organization [facility] Address [address] [place] [address] Care Team Providers Care Algology Teacher Name Role Phone HUMA FERNANDEZ MD Primary Care Provider Jair Page Jr Unavailable [phone] Allergies No Known Allergies Reason For Referral No Information Medications Medication SIG (Take, Route, Frequency, Duration) Notes Start Date End Date Status FreeStyle Lite Test - Strip In Vitro; Duration: 25 Active Pravastatin Sodium 40 MG Tablet Oral; Duration: 90 Active Valsartan-hydroCHLOROthiazi de 160-12.5 MG Tablet TAKE ONE TABLET DAILY FOR HIGH BLOOD PRESSURE Oral; Duration: 90 Active Lantus SoloStar 100 UNIT/ML Solution Pen-injector Subcutaneous; Duration: 90 Active MiraLax (colon prep) 8.3 ounce ((238) grams mixed with Gatorade or Crystal Light orally begin at 5:00 p.m. the day before the procedure; Duration: 1 day 04/08/2024 Active metFORMIN HCl 1000 MG Tablet Oral; Duration: 90 Active Dulcolax (colon prep) 5 MG Tablet Delayed Release take at 3:00 p.m and 7:00p.m. Orally two tablets twice a day for one day; Duration: 1 day 04/08/2024 Active Jardiance 25 MG Tablet TAKE 1 TABLET BY MOUTH EVERY DAY IN THE MORNING Oral; Duration: 90 Active MiraLax (colon prep) 17 GM/SCOOP Powder mixed with Gatorade or Crystal Light Orally begin at 5:00 p.m. the day before the procedure; Duration: 1 day 04/08/2024 Active Immunizations Vaccine Route Administration Date Status Comme nts Influenza Unknown 06/20/2023 Administered Social History Tobacco Use: Social History Observation Description Date Details (start date - stop date) Never Smoker NA - NA Social History Drugs/Alcohol: Social Info Question Answer Notes Alcohol Screen Did you have a drink containing alcohol in the past year? No Points 0 Interpretation Negative Tobacco Use: Social Info Question Answer Notes Tobacco Use/Smoking Patient is a nonsmoker Additional Details Category Social Info Options Details Miscellaneous: Marital status: Occupation: works full-time maintenance Problems Problem Type SNOMED Code ICD Code Onset Dates Problem Status W/U Status Risk Notes Problem Screening for malignant neoplasm of colon (327922239) Special screening for malignant neoplasms, colon (Z12.11) Active confirmed Problem Pre-procedure evaluation check (885575289) Encounter for other preprocedural examination (Z01.818) Active confirmed Problem Long-term current use of insulin (008112151) exterminator helper (current) use of insulin (Z79.4) Active confirmed Plan Of Treatment Future Test Test Name Order Date COLONOSCOPY 04/08/2024 Insurance Providers Payer Name Payer Address Payer Phone Subscriber Number Group Number Insured Name Patient Relationship to Insured Coverage Start Date Coverage End Date [facility] [address] [place] [address] [id number] GAB VALENTINE Self - patient is the insured MEDICAID OF [facility] [address] [place] [address] [phone] [id number] GAB VALENTINE Self - patient is the insured Medical (General) History Medical History History ICD Code Diabetes mellitus type 2 Hypertension Surgical History Surgery Date(Month/Year) Appendectomy
--- OUTSIDE RECORDS SUMMARY | 2025-07-11 19:36 | XMS_ITS | Encounter Summary ---
Author Organization [employer] Address [address] [facility] 7t [place] [address] Care Team Providers Care Government Clerk Name Role Phone Dot Cornejo Primary Care Provider [phone] Encounter Details Date Type Department Care Team (Late st Contact Info) Description 06/15/2023 Abstract [facility] MEDICINE [address] [place] [address] Nichole Garcia Social History Tobacco Use Types Packs/Day Years [...] Office Visit [facility] OPTOMETRY [address] [place] [address] Raphael, Loretta, OD [address] [place] [address] 10/17/2025 1:45 PM EDT Office Visit [facility] CHC MED & PEDS [address] [place] [address] Dot Cornejo FNP [address] [place] [address] documented as of this encounter Procedures Procedure Name Priority Date/Time Associated Diagnosis Comments COLONOSCOPY Routine 06/14/2013 documented in this encounter Results * Colonoscopy (06/14/2013) Colonoscopy Normal Normal Narrative Nichole Garcia - 06/14/2013 Repeat in 10 yeats us Historical Provider HEALTH MAINTENANCE Final Result documented in this encounter Visit Diagnoses Not on filedocumented in this encounter Care Teams Government Clerk Relationship Specialty Start Date End Date Dot Cornejo FNP [address] [place] [address] PCP - General Family Medicine 01/26/22 documented as of this encounter
--- OUTSIDE RECORDS SUMMARY | 2025-07-11 19:36 | XMS_ITS | Encounter Summary ---
Author Organization [employer] Address [address] [place] [address] Care Team Providers Care Student Dean Name Role Phone Dot Cornejo BAND MASTER Primary Care Provider [phone] Encounter Details Date Type Department Care Team (Late st Contact Info) Description 05/28/2024 Orders Only [facility] CHC MED & PEDS [address] [place] [address] Provider, MD Mike Social History Tobacco Use Types Packs/Day Years [...] Description 08/29/2025 1:00 PM EST Office Visit [facility] OPTOMETRY [address] [place] [address] Raphael, Loretta, OD [address] [place] [address] 10/17/2025 1:45 PM EDT Office Visit [facility] CHC MED & PEDS [address] [place] [address] Dot Cornejo FNP [address] [place] [address] documented as of this encounter Procedures Procedure Name Priority Date/Time Associated Diagnosis Comments HM COLONOSCOPY Routine 05/03/2024 5:25 PM EDT documented in this encounter Results * Hm Colonoscopy (05/03/2024 5:25 PM EDT) Historical Provider HEALTH MAINTENANCE Final Result documented in this encounter Visit Diagnoses Not on filedocumented in this encounter Additional Health Concerns Assessment Noted Time PHQ-9 Depression Total Score: 3 12/09/19 24 8:08 AM EDT documented as of this encounter Care Teams Student Dean Relationship Specialty Start Date End Date Dot Cornejo FNP [address] [place] [address] PCP - General Family Medicine 01/26/22 documented as of this encounter
== END 2025-07-11 14:22 | disposition home or self-care (01) ==
LOC: HO.CHCLDS 14:21
PROVIDERS: Visit Provider Registered Nurse
DX: E11.9 Type 2 diabetes mellitus without complications (principal); Z79.4 Long term (current) use of insulin
CPT/HCPCS: 36415; 82607